=== PATIENT | female | born 2000 | race Caucasian/White ===

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

== ENCOUNTER 2022-02-22 16:04 | Emergency (ER) | payer OTHER ==
[~2022-02-22] VITALS: Ht 152.4 cm; Wt 65.8 kg
[~2022-02-22 16:04] MED LIST: AMOX500C25 PO; NAPR-54 PO; PHEN177S23 PO; PRED20TA5 PO
[2022-02-22 16:13] VITALS: BP 110/69
[2022-02-22] MEDS ORDERED: ACETAMINOPHEN 650 MG/20.3 ML UDC PO ONE (16:15)
--- NOTE | 2022-02-22 16:21 | NUR ---
COVID, FLU SWABS DONE.
[2022-02-22] MEDS ORDERED: NIRM1TAB PO (17:25)
--- NOTE | 2022-02-22 17:58 | NUR ---
Patient discharged with v/s stable. Written and verbal after care instructions FOR COVID 19 given and explained. Patient alert, oriented and verbalized understanding of instructions. Ambulatory with steady gait. All questions addressed prior to discharge. ID band removed. Patient advised to follow up with PMD. Rx of NIRMATRELVIR given. Opportunity to ask questions provided and answered.
--- NOTE | 2022-02-22 18:00 | NUR ---
Chart checked and completed. The patient's care was reviewed and supervised by Chen Bray RN.
== END 2022-02-22 17:58 | disposition home or self-care (01) ==
LOC: MED 16:04
DX: U07.1 COVID-19 (principal); J45.909 Unspecified asthma, uncomplicated; Z79.899 Other long term (current) drug therapy
CPT/HCPCS: 99283